=== PATIENT | female | born 1960 | race Caucasian/White ===

== ENCOUNTER → 2017-02-01 | Outpatient (CLI) | payer OTHER ==
[~2017-02-01] MED LIST: EFFEXOR XR 75 M75 MG PO; NORCO 7.5-3251 EACH PO
== END ==
LOC: CT 12:25
DX: S42.401A Unspecified fracture of lower end of right humerus, initial encounter for closed fracture (principal); S52.101A Unspecified fracture of upper end of right radius, initial encounter for closed fracture
CPT/HCPCS: 73200

== ENCOUNTER 2017-02-07 12:45 | Inpatient (IN) | payer OTHER ==
[~2017-02-07] VITALS: Ht 157.5 cm; Wt 70.3 kg
[2017-02-08 07:54] LABS: HEMOGLOBIN 14.6 gm/dl (12.3-15.3); RED BLOOD COUNT 5.04 M/UL (4.00-5.10); WHITE BLOOD COUNT 7.8 K/UL (4.5-11.0)
[2017-02-08] MEDS ORDERED: EFFEXOR XR 75 M75 MG PO (08:01)
[2017-02-08 08:25] LABS: BUN/CREATININE RATIO 35 (0-10)
[2017-02-10] MEDS ORDERED: NORCO 7.5-3251 EACH PO (12:23)
== END 2017-02-10 13:46 | disposition home or self-care (01) | DRG 494 ==
LOC: OR 12:45 → EDSTATUS 13:15 → OR 02-08 07:12 → M/S 02-08 07:12 → OR 02-08 13:30 → M/S 02-09 12:00 → OR 02-09 12:00 → M/S 02-10 13:46 → OR 02-10 13:46
PROVIDERS: ADMIT Orthopaedic Surgery
PROC: 0PSF04Z Reposition Right Humeral Shaft with Internal Fixation Device, Open Approach (ICD-10-PCS; principal; 2017-02-08 08:45)
DX: S42.431A Displaced fracture (avulsion) of lateral epicondyle of right humerus, initial encounter for closed fracture (principal); Z88.2 Allergy status to sulfonamides; Z79.899 Other long term (current) drug therapy; F41.9 Anxiety disorder, unspecified; W18.39XA Other fall on same level, initial encounter
CPT/HCPCS: 36415; 73080; 76000; 80048; 85025; 93005; C1713; C1769; J0690; J1100; J1885; J2250; J2405; J2765; J2795; J3010; J7030; J7120